=== PATIENT | female | born 1950 | race Caucasian/White ===

== ENCOUNTER → 2016-06-15 | Day surgery (SDC) | payer OTHER ==
--- NOTE | 2016-06-16 15:42 | PATH ---
Surgical Pathology Report Patient Name: GABRIEL HOUSER [facility]. Rec. #: [id number] /Age/Gender: 1950 (Age: 65) / F Account: [id number] Location: [facility] Taken: 06/15/2016 Received: 06/15/2016 Reported: 06/16/2016 Physicians: Shan Roy M.D. Specimen(s) Received A: LEFT BREAST BIOPSY SITE 1 ANTERIOR WITH CALCIFICATIONS B: LEFT BREAST BIOPSY SITE 1 ANTERIOR WITHOUT CALCIFICATIONS C: LEFT BREAST BIOPSY SITE 2 WITH CALCIFICATIONS D: LEFT BREAST BIOPSY SITE 2 WITHOUT CALCIFICATIONS Clinical History Nonpalpable lesion Mammographic findings: Suspicious microcalcifications Final Diagnosis A. BREAST, LEFT, SITE #1 ANTERIOR, WITH CALCIFICATIONS, STEREOTACTIC BIOPSY: DUCTAL CARCINOMA IN SITU (DCIS), SOLID TYPE, HIGH GRADE WITH MODERATE NECROSIS AND ASSOCIATED CALCIFICATIONS. B. BREAST, LEFT, SITE #1 ANTERIOR, WITHOUT CALCIFICATIONS, STEREOTACTIC BIOPSY: DUCTAL CARCINOMA IN SITU (DCIS), SOLID TYPE, HIGH GRADE WITH MODERATE NECROSIS AND ASSOCIATED CALCIFICATIONS. C. BREAST, LEFT, SITE #2, WITH CALCIFICATIONS, STEREOTACTIC BIOPSY: DUCTAL CARCINOMA IN SITU (DCIS), SOLID TYPE, HIGH GRADE WITH MODERATE NECROSIS AND ASSOCIATED CALCIFICATIONS. D. BREAST, LEFT, SITE #2, WITHOUT CALCIFICATIONS, STEREOTACTIC BIOPSY: BENIGN BREAST TISSUE. Results of Estrogen Receptor (ER) and Progesterone Receptor (WY) studies performed on block A2 at [facility] are as follows: ER (clone [id number] mouse monoclonal antibody by [employer]): 0 % nuclear staining (Negative). WY (clone16 mouse monoclonal antibody by [employer]): 0 % nuclear staining (Negative). Positive and negative controls (internal if applicable) show appropriate results. Formalin fixation time is within current ASCO/CAP recommendations for ER, W[place] and Her2 testing. Time to formalin fixation is not given but is presumed immediate. Electronically Signed Lynne Beaulieu M.D. Gross Description A. Received in formalin labeled "left breast with calcifications site 1 anterior," are 7 beaver-yellow, cylindrical portions of fibroadipose tissue ranging from 0.5-2.3 cm in length and averaging 0.3 cm in diameter. The specimen is submitted in toto in 2 cassettes. B. Received in formalin labeled "left breast without calcifications site 1 anterior," are 3 beaver-yellow, cylindrical portions of fibroadipose tissue ranging from 0.9-3.0 cm in length and averaging 0.3 cm in diameter. The specimens are submitted in toto in one cassette. C. Received in formalin labeled "left breast with calcifications site 2," are 11 beaver-yellow, cylindrical portions of fibroadipose tissue ranging from 0.5-3.0 cm in length and averaging 0.3 cm in diameter. The specimens are submitted in toto in 2 cassettes. D. Received in formalin labeled "left breast without calcifications site 2," are 2 beaver-yellow, cylindrical portions of fibroadipose tissue measuring 0.6 and 1.0 cm in length and averaging 0.4 cm in diameter. The specimens are submitted in toto in one cassette. Time to formalin fixation: Not given Total formalin fixation time: Approximately 7 hours 06/15/201606/15/2016
== END | disposition home or self-care (01) ==
LOC: FMAMMOTONE 08:52
PROVIDERS: ATTEND Surgery Surgical Oncology
PROC: 0HBU3ZX Excision of Left Breast, Percutaneous Approach, Diagnostic (ICD-10-PCS; principal; 2016-06-15)
DX: D05.92 Unspecified type of carcinoma in situ of left breast (principal); R92.1 Mammographic calcification found on diagnostic imaging of breast; N64.1 Fat necrosis of breast; N64.89 Other specified disorders of breast
CPT/HCPCS: 19081; 19082; 87899; 88305-TC; 88342-TC; A4648

== ENCOUNTER → 2017-10-14 | Day surgery (SDC) | payer OTHER ==
--- NOTE | 2017-10-14 23:04 | OP ---
DATE OF OPERATION: 10/14/2017 PREOPERATIVE DIAGNOSIS: Right axillary adenopathy. POSTOPERATIVE DIAGNOSIS: Right axillary adenopathy. PROCEDURE: Right axillary node ultrasound guided core biopsy. ANESTHESIA: Local. ATTENDING SURGEON: Raquel Cash M.D. ESTIMATED BLOOD LOSS: Minimal. COMPLICATIONS: None. PROCEDURE: Patient was made aware of the risks and benefits of the procedure and consented. She was placed in the supine position. Under sterile conditions with 1% lidocaine for local anesthesia, a small martha is made in the skin. Using a 13 gauge using an inferior approach, under ultrasound guidance multiple cores were submitted. Likewise under ultrasound guidance, an 18 gauge hydromark coil was placed. Patient tolerated the procedure well. Steri-Strips and a sterile bandage were applied. We will contact her with the results. RAQUEL CASH M.D. [id number] MTDD
--- NOTE | 2017-10-20 13:09 | PATH ---
Surgical Pathology Report Patient Name: GABRIEL HOUSER [facility]. Rec. #: [id number] /Age/Gender: 1950 (Age: 67) / F Account: [id number] Location: [facility] Taken: 10/14/2017 Received: 10/14/2017 Reported: 10/20/2017 Physicians: Raquel Cash M.D. Specimen(s) Received RIGHT AXILLARY NODE CORE BIOPSY Clinical History Non-palpable lesion Ultrasound findings: Probably benign Final Diagnosis Lymph node, right axilla, core biopsy: Lymph node with non-necrotizing granulomas, see comment. 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 Comment: Special stains for fungal and acid fast organisms are negative. Correlation with relevant clinical and laboratory data is essential. The significance of the small area with follicular neoplasia in situ is uncertain; systemic evaluation for overt lymphoma in different body site is suggested. This case was sent to [facility], [place], [place] for ancillary studies and consultation and the above diagnosis was rendered there by . See also complete [facility] report [id number]. Electronically Signed Lynne Beaulieu M.D. Gross Description Received in formalin labeled "right axillary biopsy," is a 1.2 x 1.0 x 0.2 cm aggregate of multiple beaver-pink, irregular to cylindrical portions of fibroadipose tissue. The formalin is filtered and the specimen is entirely submitted in one cassette. Time to formalin fixation: < 1 minute Total formalin fixation time: Approximately 8 hours /10/14/2017
== END | disposition home or self-care (01) ==
LOC: FRADUS-SUR 13:52
PROVIDERS: ATTEND Surgery Surgical Oncology
PROC: 07B53ZX Excision of Right Axillary Lymphatic, Percutaneous Approach, Diagnostic (ICD-10-PCS; principal; 2017-10-14)
PROC: BH47ZZZ Ultrasonography of Upper Extremity (ICD-10-PCS; 2017-10-14)
DX: I89.8 Other specified noninfective disorders of lymphatic vessels and lymph nodes (principal)
CPT/HCPCS: 19083; 38505; 76942; 87899; 88305-TC; 88312-TC; A4648